=== PATIENT | male | born 1935 | race Caucasian/White ===

== ENCOUNTER → 2016-05-21 | Outpatient (CLI) | payer MEDICARE ==
[~2016-05-21] MED LIST: ADVAIR 250-501 EAC1 IH; ALENDRONATE SOD70 MG PO; AMBIEN PO; AMLODIPINE BESYL5 MG PO; ANTACID325 MG PO; ANTACID650 MG PO; ARTHRITIS PAIN650 M3 PO; ASPIRIN EC81 M1 PO; ASPIRIN PO; CALCIUM MAGNESIUM; CARAFATE PO; CELEBREX PO; CENTRUM SILVER PO; CHANTIX PO; CIALIS PO; CITRACAL200 MG; CLONAZEPAM2 MG PO; COMBIVENT RESPIM4 GM IH; DARVOCET-N 1001 TAB PO; DYAZIDE 37.5/251 CAP PO; ENBREL50 MG/ML; FERROUS SULFATE1 TAB PO; FLEXERIL10 MG PO; FLOMAX0.4 M1 PO; FOSAMAX PO; HUMIRA SUBQ; HUMIRA40 MG/0.1 SQ; LAMICTAL ODT200 MG PO; LISINOPRIL PO; LYRICA75 MG PO; MAG-OXIDE400 MG PO; MAGNESIUM400 MG PO; MELATONIN5 M1 PO; MILK OF MAGNESIA PO; MULTI-DAY VITAM1 TAB PO; MULTI-VITAMIN1 TAB PO; NEURONTIN600 MG PO; NEXIUM PO; OXYCODONE HCL10 MG PO; OXYCODONE HCL5 M1 PO; PANTOPRAZOLE SO40 MG PO; PAXIL10 MG PO; PERCOCET 10/31 UDTA1 PO; PERCOCET 5-3251 TAB PO; PERCOCET10 PO; PREDNISONE PO; PREDNISONE5 M1 PO; PROSCAR5 MG PO; QUESTRAN POWDER4 GM PO; SOD BICARBONATE PO; ST. JOSEPH ASP325 MG PO; STOOL SOFTENER1 EAC1 PO; SUCRALFATE PO; SUCRALFATE1 G/10 ML PO; SYMBICORT 16010.2 GM INH; TRIAMTERENE-HC1 EAC1 PO; TRIAMTERENE-HCT1 TA8 PO; VITAMIN C PO; VITAMIN D 2 PO; VITAMIN D 22000 UNIT PO; VITAMIN D50000 UNIT PO; WELCHOL625 MG; WELCHOL625 MG PO; ZITHROMAX500 MG PO; [UNRECOGNIZED DRUG - REMARK]
--- NOTE | ~2016-05-21 | CR63 ---
[facility] A Service of [facility] RADIOLOGY TEXT RESULTS PATIENT: YARITZA THIBODEAUX LOCATION: [facility] : 35 UNIT #: [id number] AGE: [address]: Enrique Skinner MD SEX: M ORDER DR: [id number] [facility] [address] [place], [place] [address] [id number] O MR#: [id number] Acc #: [id number] NAME: YARITZA THIBODEAUX. : 1935 SEX: M STUDY DATE/TIME: 05/21/2016 14:17 UNIT: [facility] ROOM: STUDY DESCRIPTION: CR Chest 2 View Attending Physician: Enrique Skinner M.D. Referring Physician: Enrique Skinner M.D. Ordering Physician: Enrique Skinner M.D. Primary Care Physician: Rojelio Macdonald M.D. MEDICAL IMAGING REPORT This report is preliminary unless electronic signature is present EXAM PA and lateral chest HISTORY Cook's esophagitis. Previous esophagectomy. FINDINGS PA and lateral view of the chest were obtained. There are postoperative changes on the right side with previous esophagectomy. There is a loop recorder superimposed on the left chest. There are sternotomy wires present. The left lung is clear. IMPRESSION No change. No active disease. Dictated by... Abdirashid Owusu M.D. THIS IS AN ELECTRONICALLY VERIFIED REPORT Abdirashid Owusu M.D. at 05/22/2016 7:17 AM FEL/psc TD: 05/21/2016 20:24 JOB #: [id number] MEDICAL IMAGING REPORT COPY
== END | disposition home or self-care (01) ==
LOC: CRAD 13:57
DX: K22.70 Barrett's esophagus without dysplasia (principal)
CPT/HCPCS: 71020

== ENCOUNTER → 2016-09-20 | Outpatient (CLI) | payer MEDICARE ==
[2016-09-20 14:55] LABS: HEMATOCRIT 35.9 % (38.0-50.0); HEMOGLOBIN 11.8 gm/dL (13.0-16.0); MEAN CELL VOLUME 91.9 FL (83-96); MEAN CORPUSCULAR HEMOGLOBIN 30.2 PG (28-34); MEAN CORPUSCULAR HGB CONC 32.8 g/dL (30-36); RED BLOOD COUNT 3.91 X10e (3.90-5.60); RED CELL DISTRIBUTION WIDTH 14.9 % (11.0-15.5); WHITE BLOOD COUNT 8.5 X10e3 (4.0-10.5)
[2016-09-20 15:26] LABS: ALBUMIN SERUM 3.6 g/dL (3.5-5.0); BILIRUBIN,TOTAL 0.4 mg/dL (0.2-2.0); BUN/CREATININE RATIO 15.71; CALCIUM SERUM 8.7 mg/dL (8.4-10.2); CREATININE SERUM 1.4 mg/dL (0.6-1.4); GLOM FILT RATE Estimated 47.1 mL/min (>60); PHOSPHOROUS 3.5 mg/dL (2.5-4.6); POTASSIUM 4.4 mmol/L (3.5-5.1); PROTEIN TOTAL SERUM 6.6 g/dL (6.0-8.3)
[2016-09-24 17:11] LABS: CALCIUM (PTHINTACT) 9.1 mg/dL (8.6-10.3)
== END | disposition home or self-care (01) ==
LOC: CLAB 14:28
PROVIDERS: Internal Medicine Nephrology
DX: I12.9 Hypertensive chronic kidney disease with stage 1 through stage 4 chronic kidney disease, or unspecified chronic kidney disease (principal); N18.3 Chronic kidney disease, stage 3 (moderate); E87.5 Hyperkalemia
CPT/HCPCS: 36415; 80053; 82310; 83970; 84100; 85027